=== PATIENT | female | born 1990 | race Caucasian/White ===

== ENCOUNTER 2024-02-10 11:39 | Emergency (ER) | payer MEDICARE, SELFPAY ==
[2024-02-10 11:44] VITALS: BP 129/87
[2024-02-10 12:45] VITALS: BMI 27.9
[2024-02-10 12:47] VITALS: BP 108/79
--- NOTE | 2024-02-10 13:06 | ED.GENMED ---
History of Present Illness
General
Chief Complaint: Medication Reaction
Source: patient
Exam Limitations: none
Time Seen by Provider: 02/10/24 12:00
Nursing documentation reviewed up to this point in time: agreed with
History of Present Illness
History of Present Illness:
Patient presents to ED with concern for potential allergic reaction to IV antibiotics that she is receiving through her right upper extremity PICC line, secondary to bacteremia developed from your infection. Patient is scheduled to receive
antibiotics for another 2 weeks. Patient no longer has ear infection/pain. With her recent antibiotics, i.e. daptomycin, administered yesterday, she started to experience immediate lower leg pain. Patient has had various reactions to different
antibiotics since it was started. Denies fever or chills. Denies nausea or vomiting. In addition, patient states that she has had hard time flushing her existing PICC line. She has received all her care at the [facility], including
infectious disease specialist, who is managing her antibiotics.
Review of Systems
Review of Systems
Allergies reviewed?: Yes
All Other Systems: ROS reviewed and negative except as documented in HPI and ROS
Constitutional: Reports no symptoms; Denies fever or chills
EENT: Reports no symptoms
Respiratory: Reports no symptoms
Cardiac: Reports no symptoms
ABD/GI: Reports no symptoms
Musculoskeletal: Reports muscle pain
Skin: Reports no symptoms
Neurological: Reports no symptoms
Phy Exam
Physical Exam
Physical Exam:
Physical Exam
General: no apparent distress, not acutely ill. afebrile
Head: nc/at. eomi
Neck: supple. no meningeal signs.
Heart: s1/s2 regular rate and rhythm, no murmur. equal radial pulses.
Lungs: no acute respiratory distress. clear bilaterally
Abdomen: normal bowel sounds. not tender.
Neuro: alert and oriented. no focal neurological deficits
Skin: no rash. RUE picc site noted, without swelling/erythema/warmth
Psychiatric: well kept. interactive and cooperative
Extremities: no edema. no calf tenderness.
Course
Orders/Labs/Results
Orders:
Orders
02/10/24 12:37
CR Chest Portable - 1 View Urgent
Comment:
Reason For Exam: picc line placement
Reason Study Needs to be Portable: Other
02/10/24 12:57
Basic Metabolic Panel Urgent
CPK Isoenzyme Urgent
Comment: ADD ON
Complete Blood Count/With Diff Urgent
Blood Culture Routine
YUMI Source: Blood/Venous
Specimen Description:
Blood Culture Urgent
YUMI Source: Blood/Venous
Specimen Description:
02/10/24 14:48
Add On- LAB Urgent
Tests Added?: CPK
Abnormal Lab Results
02/10/24
12:57
WBC 4.0 L 10^3/uL
(4.8-10.8)
MCH 31.7 H pg
(27.0-31.0)
Plt Count 124 L 10^3/uL
(130-400)
MPV 10.5 H fL
(7.4-10.4)
02/10/24 12:57
02/10/24 12:57
Vital Signs
Initial and Last Documented VS:
Initial Vital Signs
Temp Pulse Resp BP Pulse Ox
97.7 F 85 18 129/87 100
02/10/24 11:44 02/10/24 11:44 02/10/24 11:44 02/10/24 11:44 02/10/24 11:44
Last Documented Vital Signs
Temp Pulse Resp BP Pulse Ox
97.7 F 85 16 110/74 98
02/10/24 11:44 02/10/24 14:00 02/10/24 14:00 02/10/24 14:00 02/10/24 14:00
MDM/Problems Addressed
MDM/Problems Addressed:
PICC line evaluated by IV team and addressed.
Blood work within normal limits and patient remains afebrile and nontoxic-appearing.
Patient will follow-up with her ID physician on Monday for reevaluation, including potential discontinuation of antibiotics or switch to another agent with less side effects.
*Critical Care Note
Total Time (30-74mins, 75-104mins- exclusive of procedures): Not Applicable
ED Attending Note
-
Portions of this chart may have been created with voice recognition software.� Occasional wrong word or��sound alike� substitutions may have occurred due to the inherent limitations of voice recognition software.
Discharge Plan
Departure
Patient Disposition: Home (Routine Discharge)
Date of Disposition: 02/10/24
Time of Disposition: 14:48
Patient with high blood pressure during this ER visit?: Yes
Condition: Good
Discharge Problem:
Myalgia
Instructions: Muscle and bone pain - Discharge instructions
Referrals:
Richard Smith CRNP [Family Provider] -
Activity Restrictions/Additional Instructions:
As discussed, please follow-up with your infectious disease specialist on Monday for further evaluation and treatment, including potential change or discontinuation of your antibiotics
Interventions
Interventions:
*Risk Screen - Suicide Last Done: 02/10/24 11:44
*General Assessment Last Done: 02/10/24 11:44
ED- Fall Risk Assessment Last Done: 02/10/24 12:46
*ED COVID-19 Vaccine History Last Done: 02/10/24 11:44
*Nursing Disposition Last Done: 02/10/24 14:55
ED-Skin Assessment Last Done: 02/10/24 12:46
ED- Pulmonary Assessment Last Done: 02/10/24 12:46
Discharge Date and Time
Discharge Date/Time: 02/10/24 14:55
Print Language: ZAMBIAN
[2024-02-10 13:21] LABS: % Lymphocytes 33.8 % (20.5-51.1); % Monocytes 8.5 % (1.7-9.3); % Neutrophils 53.7 % (42.2-75.2); Absolute Eosinophils 0.1 10^3/uL (0-0.7); Absolute Lymphocytes 1.4 10^3/uL (1.2-3.4); Absolute Monocytes 0.3 10^3/uL (0.1-0.6); Absolute Neutrophils 2.1 10^3/uL (1.4-6.5); Hematocrit 37.2 % (37.0-47.0); Hemoglobin 13.3 g/dL (12.0-16.0); Mean Corp Hgb Conc. 35.8 g/dL (33.0-37.0); Mean Corpuscular Hgb 31.7 pg (27.0-31.0); Mean Corpuscular Volume 88.6 fL (81.0-99.0); Mean Platelet Volume 10.5 fL (7.4-10.4); Nucleated Red Blood Cells % 0 %; Platelet Count 124 10^3/uL (130-400); Red Cell Dist. Width 11.8 % (11.5-14.5)
[2024-02-10 13:29] LABS: Blood Urea Nitrogen 14 mg/dl (7-17); Calcium 9.4 mg/dl (8.4-10.2); Carbon Dioxide 22 mmol/L (22-30); Chloride 104 mmol/L (98-107); Estimated Creatinine Clearance 117 ml/min; Glucose 84 mg/dl (70-99); Potassium 4.4 mmol/L (3.5-5.1); Sodium 139 mmol/L (135-145); eGFR > 60.00
[2024-02-10 14:00] VITALS: BP 110/74
[2024-02-10 16:04] LABS: Total CK 34 U/L (30-135)
== END 2024-02-10 14:55 | disposition home or self-care (01) ==
LOC: EMR 11:39
PROVIDERS: EMERGENCY PHYSICIAN Emergency Medicine; FAMILY PHYSICIAN Nurse Practitioner Gerontology
DX: M79.10 Myalgia, unspecified site (principal); R03.0 Elevated blood-pressure reading, without diagnosis of hypertension
CPT/HCPCS: 99284; 71045; 80048; 82550; 85025; 87040

== ENCOUNTER 2024-11-16 23:14 | Day surgery (SDC) | payer MEDICARE, SELFPAY ==
[2024-11-16 16:03] VITALS: BP 125/80
[2024-11-16 16:23] LABS: Hematocrit 38.8 % (37.0-47.0); Hemoglobin 13.5 g/dL (12.0-16.0); Mean Corp Hgb Conc. 34.8 g/dL (33.0-37.0); Mean Corpuscular Volume 93.7 fL (81.0-99.0); Nucleated Red Blood Cells % 0 %; Platelet Count 157 10^3/uL (130-400); Red Cell Dist. Width 12.1 % (11.5-14.5)
[2024-11-16 16:48] LABS: ALT (SGPT) 24 U/L (0-35); AST (SGOT) 16 U/L (14-36); Albumin 4.7 g/dl (3.5-5.0); Alkaline Phosphatase 63 U/L (38-126); Blood Urea Nitrogen 10 mg/dl (7-17); Calcium 9.6 mg/dl (8.4-10.2); Carbon Dioxide 26 mmol/L (22-30); Chloride 105 mmol/L (98-107); Glucose 96 mg/dl (70-99); Lipase 94 U/L (23-300); Potassium 4.8 mmol/L (3.5-5.1); Sodium 136 mmol/L (135-145); Total Protein 6.5 g/dl (6.3-8.2); eGFR > 60.00
[2024-11-16 17:22] VITALS: BP 126/71
[2024-11-16 17:49] LABS: HCG, Urine Qualitative Screen Negative
[2024-11-16 17:50] LABS: Urine Character Clear (Clear)
[2024-11-16 18:01] LABS: Urine Red Blood Cell 0-2 /HPF (0-2)
[2024-11-16 19:04] VITALS: BP 126/72
--- NOTE | 2024-11-16 19:28 | ED.GENMED ---
History of Present Illness
<No Quijano MD, Resident - Last Filed: 11/19/24 04:25>
General
Chief Complaint: Abdominal Pain
Source: patient
Exam Limitations: none
Time Seen by Provider: 11/16/24 18:55
Nursing documentation reviewed up to this point in time: agreed with
History of Present Illness
History of Present Illness:
Mrs. Sarah Beltran is a 34-year-old female with a PMH notable for combined variable immunodeficiency, Keanu syndrome, sepsis in December 2023, IBS, ruptured ovarian cyst, and rectal abscess surgery, who presents with abdominal pain and emesis for 1
day.
Her abdominal pain started last night and she vomited twice today. She thought her symptoms were due to IBS before they became more severe. She states her abdominal pain is at her umbilicus on the right side. Abdominal pain comes in waves. When
she feels a wave of pain she also feels pain in her chest that radiates to her back. She endorses 1 episode of diarrhea. She endorses elevated temperatures up to 99 �F.
She denies blood in her emesis or diarrhea, sick contacts, urinary symptoms, upper respiratory symptoms.
She states she is allergic to Ceclor (cefaclor) and some medications given while she was in septic.
Past History
<No Quijano MD, Resident - Last Filed: 11/19/24 04:25>
Past History
ED Past Medical History: Other (David, Keanu syndrome, IBS, rectal abscess)
ED Past Surgical History: Gynecological (Ruptured ovarian cyst)
Review of Systems
<No Quijano MD, Resident - Last Filed: 11/19/24 04:25>
Review of Systems
All Other Systems: ROS reviewed and negative except as documented in HPI and ROS
Phy Exam
<No Quijano MD, Resident - Last Filed: 11/19/24 04:25>
Physical Exam
Physical Exam:
General:
Uncomfortable. Grimaces and writhes (draws in legs) with waves of abdominal pain
Abdomen:
Diffusely tender to palpation.
Most tender in the right lower quadrant, suprapubic region, and left lower quadrant.
Upper abdomen more tolerant to deep palpation.
Hypoactive bowel sounds
Cardiovascular:
Tachycardic, regular rhythm
2+ radial pulse bilaterally
No pedal edema
Lungs:
Anterior and lateral lung montoya clear to auscultation
Patient was not too much pain to sit forward for posterior lung field examination
HEENT:
EOMI
Pharyngitis
Pearly TMs laterally
No cervical lymphadenopathy
Skin:
Warm, dry, well-perfused
Diffusely red, as if from sun exposure
Course
<No Quijano MD, Resident - Last Filed: 11/19/24 04:25>
Orders/Labs/Results
Orders:
Orders
11/16/24 16:06
Test Result ONCE
11/16/24 16:13
Complete Blood Count/With Diff Urgent
Comprehensive Metabolic Panel Urgent
Lipase Urgent
11/16/24 17:37
Urinalysis Reflex To Culture Urgent
Date Specimen was Collected: 11/16/24
Time Specimen was Collected: 16:06
Urine Microscopic Reflex Cult Urgent
Urine,Hcg qualitative screen [HCG, Urine Qualitative Screen] Urgent
Date Specimen was Collected: 11/16/24
Time Specimen was Collected: 16:06
Urine Culture Urgent
YUMI Source: U
Specimen Description:
Date Specimen was Collected: 11/16/24
Time Specimen was Collected: 16:06
11/16/24 19:34
Ondansetron Injectable [Zofran] 4 mg IV NOW STA
11/16/24 19:35
Electrocardiogram (*1) Urgent
Reason for Study: QTc Monitoring
CT Abd/pelvis W Iv Cont Urgent
Comment:
Reason For Exam: lower abd pain and tenderness
EKG- Treatment ONCE
0.9% Sodium Chloride 1000 ml [Nss] 1,000 ml IV BOLUS
11/16/24 19:36
Ketorolac [Toradol] 15 mg IV NOW STA
11/16/24 20:51
SURGICAL CONSULT Urgent
Consulting Provider: Thomas Gil
Was physician already notified: Yes
Morphine Sulfate 4 mg IV NOW STA
11/16/24 20:53
LevoFLOXacin 750 MG/150 ML [Levaquin] 750 mg in 150 ml IV NOW
MetroNIDAZOLE 500 MG/100 ML [Flagyl 500 mg] 100 ml IV NOW
11/16/24 21:00
0.9% Sodium Chloride 1000 ml [Nss] 1,000 ml IV 75 mls/hr
11/16/24 21:15
HYDROmorphone [Dilaudid] 0.5 mg .ROUTE .STK-MED ONE
11/16/24 21:20
HYDROmorphone [Dilaudid] 0.5 mg IV NOW STA
11/16/24 22:53
Admit/Transfer Patient As Directed
Co-Sign Provider:
Level of Care: Observation services
Assign to:: Medical/Surgical
Physician / Group: Dr. Thomas Gil/ Surgical
Diagnosis: Acute Appendicitis
Code Status As Directed
Resuscitation Status: Full Code
11/16/24 23:00
PRN Pain Medication Management As Directed
May give lesser potent ordered pain med per pt: Yes
preference::
Protocol:: Medication orders for pain may be administered in a
manner that supports deferring to patient preference
when the pt is:
- Requesting an ordered lesser potent pain medication.
Least to most potent pain medications are defined
as: acetaminophen < NSAID < tramadol < opioids
(morphine, oxycodone, hydromorphone).
- Requesting a lesser dose of the same medication IF
ORDERED.
- Requesting a less intrusive route of administration
if both routes are prescribed by the provider (PO <
IV).
11/16/24 23:46
0.9% Sodium Chloride 1000 ml [Nss] 1,000 ml IV 75 mls/hr
HYDROmorphone [Dilaudid] 0.5 mg IV Q3HPRN PRN
Ketorolac [Toradol] 10 mg IV Q6HPRN PRN
Morphine Sulfate 4 mg IV Q4HPRN PRN
Prochlorperazine [Compazine] 10 mg IV Q6HPRN PRN
11/16/24 23:46
Activity As Directed
Activity Level: Out of Bed-Early Mobility
Anti-embolism (CLAUDIO) Hose As Directed
Type: Thigh high
Intake/ Output As Directed
Frequency: Per unit guidelines
Pneumatic Compression Sleeves As Directed
Type: Knee high
Vital Signs As Directed
Frequency: Per unit guidelines
PRN Pain Medication Management As Directed
May give lesser potent ordered pain med per pt: Yes
preference::
Protocol:: Medication orders for pain may be administered in a
manner that supports deferring to patient preference
when the pt is:
- Requesting an ordered lesser potent pain medication.
Least to most potent pain medications are defined
as: acetaminophen < NSAID < tramadol < opioids
(morphine, oxycodone, hydromorphone).
- Requesting a lesser dose of the same medication IF
ORDERED.
- Requesting a less intrusive route of administration
if both routes are prescribed by the provider (PO <
IV).
DX Deep Vein Thrombosis Video Routine
11/17/24 00:13
HYDROmorphone [Dilaudid] 1 mg IV Q3HPRN PRN
11/17/24 01:00
Flush (0.9% Sodium Chloride) [Flush (Nss)] See Dose Instructions IV PER PROTOCOL
11/17/24 05:45
Basic Metabolic Panel IN AM
Complete Blood Count/No Diff IN AM
11/17/24 Breakfast
NPO
Allow oral meds: No
Allow clear liquids: No
NPO with Ice Chips: Yes
11/17/24 08:00
MetroNIDAZOLE 500 MG/100 ML [Flagyl 500 mg] 100 ml IV Q8H
11/17/24 09:22
Dexamethasone Sod Phosphate [Decadron] 20 mg .ROUTE .STK-MED ONE
Fentanyl Citrate/Pf [Sublimaze] 100 mcg .ROUTE .STK-MED ONE
Lidocaine HCl/Pf [Xylocaine-Mpf 1% Vial] 50 mg .ROUTE .STK-MED ONE
Ondansetron Injectable [Zofran] 4 mg .ROUTE .STK-MED ONE
Propofol [Diprivan] 20 ml .ROUTE .STK-MED
Rocuronium [place] [Rocuronium] 50 mg .ROUTE .STK-MED ONE
11/17/24 09:23
Midazolam HCl [Versed] 2 mg .ROUTE .STK-MED ONE
11/17/24 09:40
Bupivacaine HCl/Epinephrine [Marcaine 0.5% W/Epi [facility] [place]] 1 cartridge .ROUTE .STK-MED ONE
11/17/24 09:57
Fentanyl Citrate/Pf [Sublimaze] 25 mcg IV [id number] PRN
HYDROmorphone [Dilaudid] 0.25 mg IV PACU-Q5MPRN PRN
HYDROmorphone [Dilaudid] 0.5 mg IV PACU-Q5MPRN PRN
Ondansetron Injectable [Zofran] 4 mg IV PACU-ONCEPRN PRN
Prochlorperazine [Compazine] 5 mg IV PACU-ONCEPRN PRN
Notify MD As Directed
Notify physician if: for SDS patients with known or suspected sleep obstructive sleep apnea, monitor in the
PACU.
Notify MD for any apneic/desaturation episodes
O2 Therapy [RESP] Urgent
Titrate/Wean O2 to maintain O2 sat greater than (%): 92
Special Instructions: -Provide supplemental oxygen to achieve O2 sat of 92% or greater.
-After 15 min, may wean O2 and discontinue if patient is able to maintain O2 sat of 92%
or greater during recovery period.
If patient is a discharge home, without oxygen therapy, notify anestheiologist if
unable to maintain O2 SAT of 92% or greater on room air for MD clearance.
11/17/24 10:00
Normosol (Mult Electrolytes) [Normosol-R/Plasmalyte-A] 1,000 ml IV PER PROTOCOL
11/17/24 20:00
LevoFLOXacin 500 MG/100 ML [Levaquin] 500 mg in 100 ml IV Q24H
Abnormal Lab Results
11/16/24 11/16/24 11/17/24
16:13 17:37 05:45
WBC 12.9 H 10^3/uL
(4.8-10.8)
RBC 4.14 L 10^6/uL 3.36 L 10^6/uL
(4.20-5.40) (4.20-5.40)
Hgb 11.0 L g/dL
(12.0-16.0)
Hct 32.0 L %
(37.0-47.0)
MCH 32.6 H pg 32.7 H pg
(27.0-31.0) (27.0-31.0)
Plt Count 125 L D 10^3/uL
(130-400)
Absolute Neuts (auto) 11.4 H 10^3/uL
(1.4-6.5)
Absolute Lymphs (auto) 0.9 L 10^3/uL
(1.2-3.4)
Neutrophils % 88.3 H %
(42.2-75.2)
Lymphocytes % 7.1 L %
(20.5-51.1)
Chloride 110 H mmol/L
(98-107)
Carbon Dioxide 21 L mmol/L
(22-30)
Calcium 8.1 L D mg/dl
(8.4-10.2)
Urine Ketones 2+ A
(Negative)
Leukocyte Esterase Rfl 1+ A
(Negative)
Urine Bacteria (Reflex) Moderate A
(Negative)
11/17/24 05:45
11/17/24 05:45
Vital Signs
Initial and Last Documented VS:
Initial Vital Signs
Pulse Resp BP Pulse Ox
116 18 125/80 98
11/16/24 16:03 11/16/24 16:03 11/16/24 16:03 11/16/24 16:03
Last Documented Vital Signs
Temp Pulse Resp BP Pulse Ox
98.3 F 83 18 94/55 99
11/18/24 15:00 11/18/24 15:00 11/18/24 15:00 11/18/24 15:00 11/18/24 15:00
<David Farr MD - Last Filed: 11/16/24 21:03>
Orders/Labs/Results
Orders:
Orders
11/16/24 16:06
Test Result ONCE
11/16/24 16:13
Complete Blood Count/With Diff Urgent
Comprehensive Metabolic Panel Urgent
Lipase Urgent
11/16/24 17:37
Urinalysis Reflex To Culture Urgent
Date Specimen was Collected: 11/16/24
Time Specimen was Collected: 16:06
Urine Microscopic Reflex Cult Urgent
Urine,Hcg qualitative screen [HCG, Urine Qualitative Screen] Urgent
Date Specimen was Collected: 11/16/24
Time Specimen was Collected: 16:06
Urine Culture Urgent
YUMI Source: U
Specimen Description:
Date Specimen was Collected: 11/16/24
Time Specimen was Collected: 16:06
11/16/24 19:34
Ondansetron Injectable [Zofran] 4 mg IV NOW STA
11/16/24 19:35
Electrocardiogram (*1) Urgent
Reason for Study: QTc Monitoring
CT Abd/pelvis W Iv Cont Urgent
Comment:
Reason For Exam: lower abd pain and tenderness
EKG- Treatment ONCE
0.9% Sodium Chloride 1000 ml [Nss] 1,000 ml IV BOLUS
11/16/24 19:36
Ketorolac [Toradol] 15 mg IV NOW STA
11/16/24 20:51
SURGICAL CONSULT Urgent
Consulting Provider: Thomas Gil
Was physician already notified: Yes
Morphine Sulfate 4 mg IV NOW STA
11/16/24 20:53
LevoFLOXacin 750 MG/150 ML [Levaquin] 750 mg in 150 ml IV NOW
MetroNIDAZOLE 500 MG/100 ML [Flagyl 500 mg] 100 ml IV NOW
11/16/24 21:00
0.9% Sodium Chloride 1000 ml [Nss] 1,000 ml IV 75 mls/hr
11/16/24 21:15
HYDROmorphone [Dilaudid] 0.5 mg .ROUTE .STK-MED ONE
11/16/24 21:20
HYDROmorphone [Dilaudid] 0.5 mg IV NOW STA
11/16/24 22:53
Admit/Transfer Patient As Directed
Co-Sign Provider:
Level of Care: Observation services
Assign to:: Medical/Surgical
Physician / Group: Dr. Thomas Gil/ Surgical
Diagnosis: Acute Appendicitis
Code Status As Directed
Resuscitation Status: Full Code
11/16/24 23:00
PRN Pain Medication Management As Directed
May give lesser potent ordered pain med per pt: Yes
preference::
Protocol:: Medication orders for pain may be administered in a
manner that supports deferring to patient preference
when the pt is:
- Requesting an ordered lesser potent pain medication.
Least to most potent pain medications are defined
as: acetaminophen < NSAID < tramadol < opioids
(morphine, oxycodone, hydromorphone).
- Requesting a lesser dose of the same medication IF
ORDERED.
- Requesting a less intrusive route of administration
if both routes are prescribed by the provider (PO <
IV).
11/16/24 23:46
0.9% Sodium Chloride 1000 ml [Nss] 1,000 ml IV 75 mls/hr
HYDROmorphone [Dilaudid] 0.5 mg IV Q3HPRN PRN
Ketorolac [Toradol] 10 mg IV Q6HPRN PRN
Morphine Sulfate 4 mg IV Q4HPRN PRN
Prochlorperazine [Compazine] 10 mg IV Q6HPRN PRN
11/16/24 23:46
Activity As Directed
Activity Level: Out of Bed-Early Mobility
Anti-embolism (CLAUDIO) Hose As Directed
Type: Thigh high
Intake/ Output As Directed
Frequency: Per unit guidelines
Pneumatic Compression Sleeves As Directed
Type: Knee high
Vital Signs As Directed
Frequency: Per unit guidelines
PRN Pain Medication Management As Directed
May give lesser potent ordered pain med per pt: Yes
preference::
Protocol:: Medication orders for pain may be administered in a
manner that supports deferring to patient preference
when the pt is:
- Requesting an ordered lesser potent pain medication.
Least to most potent pain medications are defined
as: acetaminophen < NSAID < tramadol < opioids
(morphine, oxycodone, hydromorphone).
- Requesting a lesser dose of the same medication IF
ORDERED.
- Requesting a less intrusive route of administration
if both routes are prescribed by the provider (PO <
IV).
DX Deep Vein Thrombosis Video Routine
11/17/24 00:13
HYDROmorphone [Dilaudid] 1 mg IV Q3HPRN PRN
11/17/24 01:00
Flush (0.9% Sodium Chloride) [Flush (Nss)] See Dose Instructions IV PER PROTOCOL
11/17/24 05:45
Basic Metabolic Panel IN AM
Complete Blood Count/No Diff IN AM
11/17/24 Breakfast
NPO
Allow oral meds: No
Allow clear liquids: No
NPO with Ice Chips: Yes
11/17/24 08:00
MetroNIDAZOLE 500 MG/100 ML [Flagyl 500 mg] 100 ml IV Q8H
11/17/24 09:22
Dexamethasone Sod Phosphate [Decadron] 20 mg .ROUTE .STK-MED ONE
Fentanyl Citrate/Pf [Sublimaze] 100 mcg .ROUTE .STK-MED ONE
Lidocaine HCl/Pf [Xylocaine-Mpf 1% Vial] 50 mg .ROUTE .STK-MED ONE
Ondansetron Injectable [Zofran] 4 mg .ROUTE .STK-MED ONE
Propofol [Diprivan] 20 ml .ROUTE .STK-MED
Rocuronium [place] [Rocuronium] 50 mg .ROUTE .STK-MED ONE
11/17/24 09:23
Midazolam HCl [Versed] 2 mg .ROUTE .STK-MED ONE
11/17/24 09:40
Bupivacaine HCl/Epinephrine [Marcaine 0.5% W/Epi [facility] [place]] 1 cartridge .ROUTE .STK-MED ONE
11/17/24 09:57
Fentanyl Citrate/Pf [Sublimaze] 25 mcg IV [id number] PRN
HYDROmorphone [Dilaudid] 0.25 mg IV PACU-Q5MPRN PRN
HYDROmorphone [Dilaudid] 0.5 mg IV PACU-Q5MPRN PRN
Ondansetron Injectable [Zofran] 4 mg IV PACU-ONCEPRN PRN
Prochlorperazine [Compazine] 5 mg IV PACU-ONCEPRN PRN
Notify MD As Directed
Notify physician if: for SDS patients with known or suspected sleep obstructive sleep apnea, monitor in the
PACU.
Notify MD for any apneic/desaturation episodes
O2 Therapy [RESP] Urgent
Titrate/Wean O2 to maintain O2 sat greater than (%): 92
Special Instructions: -Provide supplemental oxygen to achieve O2 sat of 92% or greater.
-After 15 min, may wean O2 and discontinue if patient is able to maintain O2 sat of 92%
or greater during recovery period.
If patient is a discharge home, without oxygen therapy, notify anestheiologist if
unable to maintain O2 SAT of 92% or greater on room air for MD clearance.
11/17/24 10:00
Normosol (Mult Electrolytes) [Normosol-R/Plasmalyte-A] 1,000 ml IV PER PROTOCOL
11/17/24 20:00
LevoFLOXacin 500 MG/100 ML [Levaquin] 500 mg in 100 ml IV Q24H
Abnormal Lab Results
11/16/24 11/16/24 11/17/24
16:13 17:37 05:45
WBC 12.9 H 10^3/uL
(4.8-10.8)
RBC 4.14 L 10^6/uL 3.36 L 10^6/uL
(4.20-5.40) (4.20-5.40)
Hgb 11.0 L g/dL
(12.0-16.0)
Hct 32.0 L %
(37.0-47.0)
MCH 32.6 H pg 32.7 H pg
(27.0-31.0) (27.0-31.0)
Plt Count 125 L D 10^3/uL
(130-400)
Absolute Neuts (auto) 11.4 H 10^3/uL
(1.4-6.5)
Absolute Lymphs (auto) 0.9 L 10^3/uL
(1.2-3.4)
Neutrophils % 88.3 H %
(42.2-75.2)
Lymphocytes % 7.1 L %
(20.5-51.1)
Chloride 110 H mmol/L
(98-107)
Carbon Dioxide 21 L mmol/L
(22-30)
Calcium 8.1 L D mg/dl
(8.4-10.2)
Urine Ketones 2+ A
(Negative)
Leukocyte Esterase Rfl 1+ A
(Negative)
Urine Bacteria (Reflex) Moderate A
(Negative)
11/17/24 05:45
11/17/24 05:45
Vital Signs
Initial and Last Documented VS:
Initial Vital Signs
Pulse Resp BP Pulse Ox
116 18 125/80 98
11/16/24 16:03 11/16/24 16:03 11/16/24 16:03 11/16/24 16:03
Last Documented Vital Signs
Temp Pulse Resp BP Pulse Ox
98.3 F 83 18 94/55 99
11/18/24 15:00 11/18/24 15:00 11/18/24 15:00 11/18/24 15:00 11/18/24 15:00
<No Quijano MD, Resident - Last Filed: 11/19/24 04:25>
MDM/Problems Addressed
Differential Diagnosis Includes:
Gastroenteritis
Appendicitis
IBS
IBD
Cystitis
Pyelonephritis
Premenstrual syndrome
Bowel obstruction
Intussusception
MDM/Problems Addressed:
Lisa Beltran is a 34-year-old female with a PMH notable for CVID, sepsis, rectal abscess, and IBS, who is presenting with 1 day of abdominal pain and emesis.
IV fluids
Zofran
Toradol
EKG due to chest pain
CT abdomen pelvis with IV contrast: Acute appendicitis
Levaquin and Flagyl
General Surgery consulted
Morphine
N.p.o.
IV fluids
Chronic conditions affecting care: Other (CVID, IBS, rectal abscess)
<No Quijano MD, Resident - Last Filed: 11/19/24 04:25>
*Pulse Oximetry
SaO2: 100
Oxygen Mode of Delivery: Room air
Patient hypoxic: no
*Ship Captain Interpretation
Rate: normal
Interpretation: normal
Rhythm: sinus
*Critical Care Note
Total Time (30-74mins, 75-104mins- exclusive of procedures): Not Applicable
ED Attending Note
<No Quijano MD, Resident - Last Filed: 11/19/24 04:25>
-
Portions of this chart may have been created with voice recognition software.� Occasional wrong word or��sound alike� substitutions may have occurred due to the inherent limitations of voice recognition software.
<David Farr MD - Last Filed: 11/16/24 21:03>
ED Attending Note
Patient seen and examined by attending physician: Yes
I performed a history and physical exam of patient and discussed management with resident, I reviewed resident's note and agree with documented findings and plan of care.: Yes
ED Attending Note:
I have seen and evaluated the patient with a [id number] encounter. I have spoken to the resident and involved in the medical history, the physical exam, medical decision making.
Evaluation and management service: agree unless noted differently below.
Results interpretation: agree unless noted differently below.
Focused HPI: 34-year-old female with a past medical history of common variable immunodeficiency presents to the emergency room for evaluation of abdominal pain. Patient reports onset of symptoms last night and they have been constant and
progressive since then. She reports pain across the lower abdomen somewhat worse on the right. Associated with nausea and vomiting. Denies diarrhea or constipation. Denies vaginal bleeding. Denies any urinary symptoms. She denies having had
similar symptoms in the past.
Physical exam: Awake and alert appears mildly uncomfortable. Tachycardic in triage normalized by my assessment. No fever. Her abdomen is soft but diffusely tender with some voluntary guarding. Maximally tender right lower quadrant.
Medical Decision Makin-year-old female presents for evaluation of lower abdominal pain associate with nausea and vomiting. Tachycardic in triage normalized by my assessment otherwise normal vitals. She is markedly tender to the touch. Labs
were significant for leukocytosis to 12.9. Neutrophil predominance. CMP unremarkable. hCG negative. Urinalysis appears contaminated. CT called back by [facility]: Positive for acute appendicitis. Will treat with antibiotics. Case
discussed with general surgery for admission.
Discharge Plan
Departure
Patient Disposition: Admit
Date of Disposition: 11/16/24
Time of Disposition: 20:57
Admit to doctor: Jeffery
Presentation/result/management discussed w/ accepting MD/DO: Surgery
Discharge Problem:
Acute appendicitis
Interventions
Interventions:
*Risk Screen - Suicide Last Done: 11/16/24 23:58
*General Assessment Last Done: 11/16/24 16:03
*Neglect/Abuse Screening Last Done: 11/16/24 19:10
*ED- Fall Risk Assessment Last Done: 11/16/24 16:03
*ED COVID-19 Vaccine History Last Done: 11/16/24 23:58
*Nursing Disposition Last Done: 11/16/24 23:57
YB-Skmbkr-Rxowbhmzin Assessment Last Done: 11/16/24 19:10
Discharge Date and Time
Discharge Date/Time: 11/16/24 23:58
[2024-11-16] MEDS: NSS 1000 IV ×2 (19:47→22:03)
[2024-11-16] MEDS: TORADOL 15 MG IV (19:47)
[2024-11-16] MEDS: ZOFRAN 4 MG IV (19:47)
[2024-11-16 20:00] VITALS: BP 126/79
[2024-11-16 21:00] VITALS: BP 104/67
[2024-11-16] MEDS: FLAGYL 500 MG 100 IV (21:03)
[2024-11-16] MEDS: LEVAQUIN 150 IV (21:04)
[2024-11-16] MEDS: DILAUDID 0.5 MG IV (21:20)
[2024-11-16 22:00] VITALS: BP 106/60
[2024-11-17] VITALS (14 sets, daily range): BP systolic 93–115; BP diastolic 53–75; BMI 26.7
--- NOTE | 2024-11-17 00:21 | HPS.HSE ---
Addendum entered and electronically signed by Thomas Gil MD 11/17/24 11:18:
CT reviewed, c/w acute appendicitis. Informed consent obtained.
Addendum entered and electronically signed by Thomas Gil MD 11/17/24 11:00:
I saw and examined the patient.
The Retort Kiln Burner's note was reviewed and I agree with the note.
Comment: 2 days abd pain, generalized with subsequent migration to RLQ. Hx of immune deficiency not on treatment. endorses anorexia and n/v, denies f/c. ttp to rlq on exam. Leukocytosis noted. IV abx. OCTOR lap appy.
Original Note:
Family Physician
-
Family Physician: Ryan Davison
Chief Complaint
-
Abdominal pain
History of Present Illness
This is a 34-year-old female who presents to [facility] with a PMH notable for combined variable immunodeficiency, Fuentes syndrome, sepsis (12/2023), IBS, ruptured ovarian cyst, and rectal abscess surgery. She presents with abdominal pain and emesis x1 day.
At first she thought her symptoms were due to her IBS as she notes that she ate onion earlier in the day and this is a trigger food for her. She states her abdominal pain is sharp in nature to the right of her umbilicus and the pain comes in waves-
mostly with movement. When she feels a wave of pain she also feels pain in her chest that radiates to her back. She endorses one episode of diarrhea and two episodes of emesis. Denies any blood noted in the v/d. She endorses elevated temperatures
up to 99.6 �F at home.
She denies any sick contacts, diaphoresis, chest pain, shortness of breath, dysuria, urgency and or hematuria.
No history of similar episodes of abdominal pain.
WBCs 12.9, H&H 13.5/38.8 UA- appears contaminated.
She received 1L NSS bolus. Dilaudid & Morphine for pain. Zofran for nausea and Flagyl & Levaquin for ABX (without issue when assessed).
She has noted allergies to Cefaclor, Ceftriaxone, Daptomycin, and Vancomycin.
Medical History
Past Medical History
Past Medical History: Reports Other (combined variable immunodeficiency, Fuentes syndrome, sepsis (12/2023), and IBS)
Past Surgical History: Reports Other (rectal abscess surgery)
Social History
Tobacco: Non-smoker
Alcohol: Occasional
Drug: None
Living: With Family
Family History
Family History: Not pertinent
Allergies / Home Medications
Allergies reflects when Allergies were last updated in [facility].
Home Medications with original date entered in [facility]
Allergy/Medication List:
Allergies
Allergy/AdvReac Type Severity Reaction Status Date / Time
cefaclor (From Ceclor) Allergy Hives Verified 11/16/24 16:06
ceftriaxone (From Rocephin) Allergy burning Verified 11/16/24 16:06
and
stinging
all over
body
daptomycin Allergy muscle Verified 11/16/24 16:06
cramping
and pain
vancomycin Allergy burningman Verified 11/16/24 16:06
syndrome,
hives
oral steroids Allergy manic Uncoded 11/16/24 16:06
episodes
Home Medications
cholecalciferol (vitamin D3) 100 mcg (4,000 unit) capsule 1,000 unit PO DAILY 11/16/24
saffron extract 176.5 mg tablet 176.5 mg PO DAILY 11/16/24
vitamin K2 40 mcg tablet 40 mcg PO DAILY 11/16/24
Review of Systems
-
History Source: Patient
A 12 point ROS was completed and negative except as noted: Yes
Abdomen/GI: Reports Abdominal Pain, Nausea, Vomiting and Diarrhea
Physical Exam
Vital Signs
Vital Signs
Temp Pulse Resp BP Pulse Ox
98.4 F 92 16 99/62 99
11/17/24 00:01 11/17/24 00:01 11/17/24 00:01 11/17/24 00:01 11/17/24 00:01
Physical Exam
General: Well Nourished and Conversant
HEENT: NormoCephalic
Respiratory: Clear
Cardiac: S1/S2 and Regular Rhythm
GI: Tender and Distended
Musculoskeletal: No Edema
Skin: Warm
Neuro: Awake, Alert and Oriented
Psych: Calm
Laboratory Results
-
Laboratory Results
Total Bilirubin 0.8 mg/dl (0.2-1.3) 11/16/24 16:13
AST 16 U/L (14-36) 11/16/24 16:13
ALT 24 U/L (0-35) 11/16/24 16:13
Alkaline Phosphatase 63 U/L (38-126) 11/16/24 16:13
Lipase 94 U/L (23-300) 11/16/24 16:13
Data Reviewed
-
CT Scan: Report Reviewed by me
Lab Data: Labs Reviewed by me
Impression/Plan
-
ABDOMEN/ PELVIS CT: Appendix measuring up to 1.1 cm with minimal wall thickening/enhancement and possible proximal appendicolith, suspicious for acute appendicitis.
Approximate 2 cm right ovarian cyst.
Small volume free fluid in the right adnexa extending into the dependent true pelvis.
IMPRESSION/ PLAN:
Admit to General Surgery- Dr. Thomas Gil
Med Surg
Acute Appendicitis
NPO
IVF
ABX
Antiemetics
Pain management
DVT Prophylaxis: SCDs
Full Code
[2024-11-17] MEDS: DILAUDID 1 MG IV ×5 (00:27→19:52)
[2024-11-17] MEDS: COMPAZINE 10 MG IV ×2 (00:27→19:58)
[2024-11-17] MEDS: NSS IV (00:40)
--- NOTE | 2024-11-17 00:42 | PTCARENOTE ---
patient arrived from ED via stretcher. NSS running at 75 ml/hr. VSS. Patient complains of 8/10 generalized abdominal pain. PRN IV Dilaudid administered. Patent complains of nausea--PRN Compazine administered. OOB independent. No history of falls,
thus no bed alarm in place. Skin is clean, dry and intact with tattoos throughout. NPO with ice chips. patient oriented to room. Bed in lowest position. Call de la garza and personal belongings within reach.
[2024-11-17 06:22] LABS: Hematocrit 32.0 % (37.0-47.0); Hemoglobin 11.0 g/dL (12.0-16.0); Mean Corp Hgb Conc. 34.4 g/dL (33.0-37.0); Mean Corpuscular Volume 95.2 fL (81.0-99.0); Platelet Count 125 10^3/uL (130-400); Red Cell Dist. Width 12.2 % (11.5-14.5)
[2024-11-17 06:56] LABS: Blood Urea Nitrogen 7 mg/dl (7-17); Calcium 8.1 mg/dl (8.4-10.2); Carbon Dioxide 21 mmol/L (22-30); Chloride 110 mmol/L (98-107); Estimated Creatinine Clearance 102 ml/min; Glucose 91 mg/dl (70-99); Potassium 3.7 mmol/L (3.5-5.1); Sodium 138 mmol/L (135-145); eGFR > 60.00
[2024-11-17] MEDS: FLAGYL 500 MG 100 IV ×2 (08:01→15:13)
--- NOTE | 2024-11-17 11:02 | W.IMMPOSTOP ---
Surgical Immed Post Op Note
-
Primary Surgeon: Jeffery
Assisting: Elizabeth ERWIN
Pre-op Diagnosis: Acute appendicitis
Post-op Diagnosis: Same
Procedure Performed: Laparoscopic appendectomy
Anesthesia Type: GETA
Specimen / Cultures: Appendix
Estimated Blood Loss: 3cc
Complications: None immediate
Operative Findings: Moderate omental adhesions to abdominal wall at midline adn right lower quadrant with chronic appearance (not acute), taken down with voyant, inflamed distended and turgid appendix without perforation, scant turbid fluid in
pelvis suctioned
Given hx of immune issues, plan for overnight stay with IV abx and DC with 7 days levaquin/flagyl
Mom updated by phone
--- NOTE | 2024-11-17 11:21 | OR.RPT ---
Operative Report
Operative Report
Primary Surgeon: Jeffery
Assisting: Elizabeth ERWIN
Pre-op Diagnosis: Acute appendicitis
Post-op Diagnosis: Same
Procedure Performed: Laparoscopic appendectomy
Anesthesia Type: GETA
Specimen / Cultures: Appendix
Estimated Blood Loss: 3cc
Complications: None immediate
Operative Findings: Moderate omental adhesions to abdominal wall at midline adn right lower quadrant with chronic appearance (not acute), taken down with voyant, inflamed distended and turgid appendix without perforation, scant turbid fluid in
pelvis suctioned
Indications: This 34F developed right lower quadrant abdominal pain and on workup was found to have acute appendicitis. Laparoscopic appendectomy was elected.
Description of procedure: The patient was placed on the operating table in the supine position. General anesthesia was induced. A time-out was completed verifying correct patient, procedure, site, positioning, and special equipment prior to
beginning this procedure. An orogastric tube was placed. The abdomen was prepped and draped in the usual sterile fashion. A stab incision was made in left upper quadrant and the Veress needle was inserted. Proper position was confirmed by aspiration
and saline meniscus test. The abdomen was insufflated with carbon dioxide to a pressure of 12 mmHg. The patient tolerated insufflation well.
A 5mm optical trocar was then inserted at the left lower quadrant. The laparoscope was inserted and the abdomen inspected. A superficial hemostatic injury from the veress needle to the left liver lobe was identified and observed for several minutes.
Hemostasis was assured. No other injuries from initial trocar placement or Veress needle insertion were noted. Additional trocars were then inserted in the following locations: a 12-mm trocar at the umbilicus and a 5-mm trocar midline in the
suprapubic space. The abdomen was inspected and om,ental adhesions to the abdominal wall were found. These were taken down with the voyant device. The table was placed in the Trendelenburg position with the right side up. The tip of the appendix was
gently grasped with an atraumatic grasper and retracted toward the patient�s feet and abdominal wall. This maneuver exposed the appendiceal blood supply which was controlled with the voyant device. Following this, a laparoscopic linear cutting
stapler with a 45mm baldwin load was deployed and used to transect the appendix at its base. The appendix was placed in an endoscopic retrieval bag, removed through the umbilical port, and passed off the table as a specimen.
We then turned our attention to the staple line, which was noted to be hemostatic. The pelvis was inspected and scant turbid fluid was suctioned. The umbilical trocar site was closed at the fascial level laparoscopically with 2-0 PDS under direct
vision. Secondary trocars were removed under direct vision and noted to be hemostatic. The laparoscope was withdrawn and the abdomen was allowed to collapse. The skin was closed with subcuticular sutures of 4-0 monocryl and topical skin adhesive.
The orogastric tube was removed.
The patient tolerated the procedure well and was taken to the postanesthesia care unit in stable condition.
The assistance of Elizabeth ERWIN was required due to the complexity of the procedure. During the procedure she assisted with retraction, visualization, resection, and closure of the wound.
[2024-11-17] MEDS: DILAUDID 0.25 MG IV (11:47)
[2024-11-17] MEDS: NSS 1000 IV (12:32)
[2024-11-17] MEDS: ULTRAM 100 MG PO (15:22)
--- NOTE | 2024-11-17 16:11 | CM ---
accounts receivable manager reviewed patient's chart and met with patient. Patient was admitted under OBS, OBS letter signed at 9am but patient switched to inpatient, and patient made aware that she is inpatient. Patient lives with with her mother and daughter in
a 1st floor apartment is independent with adl's and ambulation, no dme, patient drives home no needs when stable.
PCP: Dr Ryan Davison
Pharmacy: [facility].
[2024-11-17] MEDS: LEVAQUIN 100 IV (19:54)
[2024-11-18] MEDS: FLAGYL 500 MG 100 IV ×3 (00:38→15:37)
[2024-11-18] MEDS: DILAUDID 0.5 MG IV ×2 (00:58→06:33)
[2024-11-18 03:15] VITALS: BP 96/55
--- NOTE | 2024-11-18 04:00 | PTCARENOTE ---
All lap sites were fine at start of shift. Around 0100, we noticed belly button lap site was slowly bleeding. Around 0300, pt got up to go to the bathroom and belly button continued to bleed. The gauze was 75% saturated. ASSEMBLER BILLIARD TABLE made aware and came to
unit to observe and advised to contact assistant manager airside operations surgeon who also performed her lap appendectomy. Messaged Dr. Gil with details and photos of site. He advised to reinforce dressing and that no labs were needed.
[2024-11-18 07:00] VITALS: BP 95/69
[2024-11-18] MEDS: NSS IV (07:31)
[2024-11-18] MEDS: DILAUDID 1 MG IV ×2 (10:07→13:10)
[2024-11-18] MEDS: DIFLUCAN 150 MG PO (10:08)
--- NOTE | 2024-11-18 11:25 | W.PN.GS2 ---
Addendum entered and electronically signed by Karri Staton MD 11/18/24 18:05:
I saw and examined the patient independently.
The resident's documentation was reviewed and I agree with the note, assessment and plan except where noted below.
Comment: This is a 34-year-old female postoperative day 1 from laparoscopic appendectomy for acute appendicitis. Overall doing well, expected postoperative course.
Regular diet.
Will plan for 4days of antibiotics.
DVT prophylaxis
Possible DC home today.
.
Original Note:
Today's Communication / Plan
-
Surgery team will recheck patient status this afternoon.
Patient is taught how to change and keep her dressing clean
Patient will be given home pain medication and antibiotics to continue at home when discharged.
Assessment / Plan
-
POD #1�s/p laparoscopic appendectomy for acute appendicitis.
Patient seems to be in distress.
Gauze dressing replaced
Patient was offered an abdominal binder
Surgery team will recheck patient's overall status in the afternoon.
Patient is informed that she will be discharged with 7 days worth of antibiotics and some dressing supplies.
Provided patient with pain medication for home as needed
Time Spent
Total Time Spent with Patient (in minutes): 40
Subjective Data
-
Date of Service: November 18, 2024
34-year-old female with past medical history for CVID, Keanu syndrome, sepsis ((01/19/2024), IBS, ruptured ovarian cyst, rectal abscess surgery presented with abdominal pain and emesis for 1 day. She had assumed her symptoms were IBS related because
she had eaten one of her trigger foods (onion). She states her pain is sharp in nature to the right side of umbilicus. She states the pain comes in waves and is exacerbated with movement. The waves of pain trigger chest pain that radiates to her
back. Patient states she had 2 episodes of diarrhea and 1 episode of emesis. She denies blood in vomit or diarrhea. Patient also denies chest pain, shortness of breath, dysuria, diaphoresis or any sick contacts. Patient is POD #1 s/p
laparoscopic appendectomy for acute appendicitis. Today, patient denies N/V/D/F. Patient states that she has had flatus and has been tolerating her diet. Patient upon general inspection seems to be in general distress d/t post op pain.
Objective Data
-
Intake and Output
11/17/24 11/18/24 11/19/24
06:59 06:59 06:59
Intake Total 700 / 700
Balance 700 / 700
Intake:
Oral fluids 600 / 600
IV fluids (Total) 100 / 100
Normosol 100 / 100
Other:
Number of approximated MODERATE 3
amounts of urine
Vital Signs
Temp Pulse Resp BP Pulse Ox
98.4 F 72 18 95/69 99
11/18/24 07:00 11/18/24 07:00 11/18/24 07:00 11/18/24 07:00 11/18/24 07:00
Lab Results
11/18/24 03:36
11/18/24 03:36
Calcium Cancelled 11/18/24 03:36
Total Bilirubin 0.8 mg/dl (0.2-1.3) 11/16/24 16:13
AST 16 U/L (14-36) 11/16/24 16:13
ALT 24 U/L (0-35) 11/16/24 16:13
Alkaline Phosphatase 63 U/L (38-126) 11/16/24 16:13
Total Protein 6.5 g/dl (6.3-8.2) 11/16/24 16:13
Albumin 4.7 g/dl (3.5-5.0) 11/16/24 16:13
AFVSS: Afebrile. BP mildly hypotensive.
Labs: from 11/17 WBC count reduced from 12.[address] Abdomen/Pelvis with IV Contrast: Appendix measuring up to 1.1 cm with minimal wall thickening. Possible proximal appendicolith.
Physical Exam
-
General: Patient looked in pain and distressed.
Chest: No labored breathing
Abdomen: TTP at incision site. Mild distension. Mild oozing at incision site observed.
Patient has a carlson catheter: No
Patient has a central line: No
[2024-11-18 15:00] VITALS: BP 94/55
[2024-11-18] MEDS: TYLENOL 1000 MG PO (15:37)
--- NOTE | 2024-11-18 16:12 | W.DS.TRANS ---
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
-
Discharge Instructions:
Discharge Diagnosis/Procedures Acute appendicitis status post laparoscopic
appendectomy
Diet As tolerated,Regular
Additional Diets Eat small meals at first as bloating is common
Activity No strenuous activity
Additional Activity Do not lift over 15lbs for the next 2-3 weeks
Driving Restrictions Do not drive while taking narcotics
Bathing Restrictions OK to Shower
Wound Care Allow the glue to flake off your incisions over
the next 2-3 weeks
Instructions:
Stand-Alone Forms:
Changes to Home Medications: No
Discharge Medications:
DC Medications w/original date entered in [facility]
cholecalciferol (vitamin D3) 100 mcg (4,000 unit) capsule 1,000 unit PO DAILY 11/16/24
saffron extract 176.5 mg tablet 176.5 mg PO DAILY 11/16/24
vitamin K2 40 mcg tablet 40 mcg PO DAILY 11/16/24
acetaminophen 325 mg tablet 650 mg (2 x 325 mg) PO Q4HPRN PRN mild pain #1 tab 11/18/24
ibuprofen 200 mg tablet 400 - 600 mg (2 - 3 x 200 mg) PO Q6HPRN PRN moderate pain #1 tab 11/18/24
levofloxacin 750 mg tablet 750 mg PO QPM #6 tabs 11/18/24
metronidazole 500 mg tablet 500 mg PO Q8H 6 days #18 tabs 11/18/24
oxycodone 5 mg tablet 5 mg PO Q4HPRN PRN breakthrough/severe pain #5 tabs 11/18/24
Home Medication Changes
Pending Results: No
--- NOTE | 2024-11-18 16:28 | CM ---
CM reviewed chart, patient for discharge today, home no needs. CM will continue to follow for all discharge planning needs.
Plan; home no needs.
== END 2024-11-18 18:21 | disposition home or self-care (01) ==
LOC: PACU 23:14
PROVIDERS: ATTENDING PHYSICIAN Surgery; EMERGENCY PHYSICIAN Emergency Medicine; FAMILY PHYSICIAN Family Medicine
DX: K35.80 Unspecified acute appendicitis (principal)
CPT/HCPCS: 44970; 74177; 80048; 80053; 81003; 81015; 81025; 83690; 85025; 85027; 87086; 88304; 93005; 96361; 96365; 96367; 96375; 99285; 99406; C1776; Q9967